=== PATIENT | male | born 1980 | race Caucasian/White ===

== ENCOUNTER 2022-04-11 05:25 | Day surgery (SDC) | payer BC ==
[~2022-04-11] VITALS: Ht 172.7 cm; Wt 84.6 kg
[2022-04-11] MEDS ORDERED: ZYRTEC 10MG10 MG PO (05:55)
[2022-04-11] MEDS ORDERED: NORVASC 10MG10 MG PO (05:55)
[2022-04-11] MEDS ORDERED: FLUTICASONE PROPIONATE NS (05:57)
[2022-04-11 06:20] VITALS: BP 145/87; PULSE 92; TEMP 97.6
--- NOTE | 2022-04-11 07:16 | NUR ---
is speaking with PT. PLANT CHANGER and BACK SHOE CUTTER have spoken w/ PT. Call ferrer remains within reach.
--- NOTE | 2022-04-11 07:24 | NUR ---
PT ambulated to bathroom w/ OR, RN and voided prior to procedure. PT was taken to the OR via cart.
--- NOTE | 2022-04-11 08:42 | NUR ---
PT arrives to PACU
[2022-04-11] MEDS ORDERED: ULTRAM 50MG TAB50 MG PO (08:46)
[2022-04-11 09:20] VITALS: BP 115/74; PULSE 74; TEMP 97.3
--- NOTE | 2022-04-11 09:27 | NUR ---
0920 - PT arrives from PACU escorted by Soumya WESTFALL. PT is drowsy but oriented. Monitors applied and vitals obtained. PT is tolerating ice chips and is provided ice water. x3 lap sites across abdomen are clean, dry and intact; w/o drainage. PT states pain 3/10, however, refused interventions. Side rails x2. PT oriented to room and call ferrer, within reach. 0925 - PT provided w/ additional warm blankets. Call ferrer remains within reach.
[2022-04-11 09:35] VITALS: BP 110/67; PULSE 66
--- NOTE | 2022-04-11 09:36 | NUR ---
0935 - S. PT sleeps unless aroused. Per Marysol, the PT has had some ice water. Call ferrer remains within reach.
[2022-04-11 09:50] VITALS: BP 110/66; PULSE 67
--- NOTE | 2022-04-11 09:59 | NUR ---
0950 - [facility]. PT assisted with repositioning in bed. PT provided w/ wheat toast w/ jam and butter on the side per request. PT denies nausea; PT states some "discomfort" at operative sites, however, is unable to rate on a scale from 0 to 10. Call ferrer remains within reach if needed. Will monitor per intervals.
[2022-04-11 10:05] VITALS: BP 118/71; PULSE 71
--- NOTE | 2022-04-11 10:13 | NUR ---
1005 - PT resting in bed apon entry. PT continues to deny nausea. No vomiting. PT has had half his toast, and continues to sip water. Call ferrer remains within reach. IV bag replenished with new LR; set to 100 ml/hr. Warm blankets reapplied.
[2022-04-11 10:35] VITALS: BP 124/76; PULSE 71
--- NOTE | 2022-04-11 10:46 | NUR ---
1035 - [facility]SS. IV disconnected; PT assisted to bedside and ambulated to bathroom with minimal difficulty. PT voided then back to bed. PT expressed desire to be discharged; call ferrer remains within reach.
--- NOTE | 2022-04-11 10:58 | NUR ---
1045 - IV discontinued. Catheter tip intact. Pressure bandage applied. No redness or swelling noted. DC instruction and educational material reveiwed with the PT, who verbalized understanding and signed the related paperwork. Questions answered to PT satisfaction. PT refused RN assistance changing, however, call ferrer remains within reach if needed. Marysol remains present.
--- NOTE | 2022-04-11 12:35 | NUR ---
1100 - PT dismissed from [facility] via wheelchair to the PT entrence by Liliya WESTFALL. PT has personal belongings and DC packet; PT was transferred into the care of Marysol, who is driving private car.
== END 2022-04-11 11:10 | disposition home or self-care (01) ==
LOC: SDCO 05:25
DX: K40.91 Unilateral inguinal hernia, without obstruction or gangrene, recurrent (principal)
CPT/HCPCS: C1781; J0690; J1100; J1885; J2405; J2704; J3010; J7120

== ENCOUNTER 2023-11-27 21:56 | Emergency (ER) | payer BC ==
[~2023-11-27] VITALS: Ht 172.7 cm; Wt 79.5 kg
[~2023-11-27 21:56] MED LIST: FLUTICASONE PROPIONATE NS; NORVASC 10MG10 MG PO; ULTRAM 50MG TAB50 MG PO; ZYRTEC 10MG10 MG PO
[2023-11-27 22:03] VITALS: TEMP 99.9
[2023-11-27 22:17] LABS: BASO # 0.1 K/mm3 (0.0-0.2); BASO % 0.6 % (0.0-2.0); EOS # 0.2 K/mm3 (0.0-0.7); EOS % 1.4 % (0.0-4.0); GRAN # 9.5 K/mm3 (1.4-6.5); GRAN % 73.1 % (42.2-75.2); HEMATOCRIT 44.9 % (42.0-52.0); HEMOGLOBIN 15.7 g/dl (13.5-18.0); LYMPH # 2.5 K/mm3 (1.2-3.4); LYMPH % 19.1 % (20.0-51.0); MEAN CELL VOLUME 86 fl (80.0-100.0); MEAN CORPUSCULAR HEMOGLOBIN 30 pg (27-31); MEAN CORPUSCULAR HGB CONC 35 g/dl (33.0-37.0); MEAN PLATELET VOLUME 9.2 fl (7.4-10.4); MONO # 0.7 K/mm3 (0.1-0.6); MONO % 5.5 % (1.7-9.3); PLATELET COUNT 241 K/mm3 (130-400); RED BLOOD COUNT 5.25 M/mm3 (4.20-5.60); REDCELL DISTRIBUTION WIDTH-CV 11.9 % (11.5-14.5)
[2023-11-27] MEDS ORDERED: Ketorolac 30 MG/ML VIAL IV ONE (22:30)
[2023-11-27] MEDS ORDERED: NS 1,000 ML IV ONE (22:30)
[2023-11-27 22:36] LABS: ALBUMIN 4.5 gm/dL (3.5-5.0); BILIRUBIN,TOTAL 0.6 mg/dL (0.2-1.2); C-REACTIVE PROTEIN 0.06 mg/dL (0.00-0.50); CALCIUM 9.6 mg/dL (8.4-10.2); CREATININE, serum 1.29 mg/dL (0.72-1.25); POTASSIUM 3.4 mmol/L (3.5-4.5); TOTAL PROTEIN 6.9 gm/dL (6.2-8.1)
[2023-11-27] MEDS ORDERED: Ondansetron 4 MG/2 ML VIAL IV ONE (22:45)
[2023-11-27 22:55] LABS: PH 7.5 (5.0-8.5); URINE APPEARANCE CLEAR (CLEAR/HAZY); URINE BLOOD 3+ (NEGATIVE); URINE COLOR YELLOW (YELLOW); URINE GLUCOSE NEGATIVE (NEGATIVE); URINE KETONE 1+ (NEGATIVE); URINE NITRATE NEGATIVE (NEGATIVE); URINE PROTEIN(semi-quant) TRACE (NEGATIVE); URINE UROBILINOGEN 0.2 E.U/dL (0.2-1.0)
[2023-11-27] MEDS ORDERED: NS 50 ML IV SCH (23:14)
[2023-11-27] MEDS ORDERED: Iohexol 300 - 100 ML VIAL IV ONE (23:14)
[2023-11-27 23:24] LABS: COLLECTION METHOD CLEAN CATCH
[2023-11-27] MEDS ORDERED: Home HYDROcodone/Acetaminophen 5/325 MG #4 TABS/PACK PO ONE (23:45)
[2023-11-27] MEDS ORDERED: Home Ondansetron ODT 4 MG #2 ODT/PACK PO ONE (23:45)
[2023-11-28] MEDS ORDERED: NORCO 325 MG-51 TAB PO (00:04)
[2023-11-28] MEDS ORDERED: ZOFRAN ODT4 MG PO (00:06)
[2023-11-28 00:23] VITALS: BP 135/86; PULSE 78
== END 2023-11-28 00:18 | disposition home or self-care (01) ==
LOC: COL.ER 21:56
PROVIDERS: Nurse Practitioner Primary Care
DX: N13.2 Hydronephrosis with renal and ureteral calculous obstruction (principal); Z88.6 Allergy status to analgesic agent
CPT/HCPCS: J1885; J2405; J7030; Q9967